=== PATIENT | female | born 1960 | race Caucasian/White ===

== ENCOUNTER 2016-07-21 13:20 | Outpatient (CLI) | payer OTHER ==
--- NOTE | 2016-07-21 14:44 | DIAGNOSTIC IMAGING REPORT ---
PROCEDURE: XR LUMBAR SPINE 2 OR 3 VIEWS INDICATION: CHRONIC MIDLINE LOW BBACK PX WITHOUT SCIATICA TECHNIQUE: Three views. COMPARISON: None. FINDINGS: Osseous structures and disc spaces are normal. No evidence of an acute process or fracture. IMPRESSION: 1. Negative lumbar spine.
== END 2016-07-21 23:00 ==
LOC: XR SRH 13:20
DX: M54.5 Low back pain (principal)

== ENCOUNTER 2016-08-15 14:13 | Outpatient (CLI) | payer OTHER | END 2016-08-15 23:00 | LOC: LAB SRH 14:13 | DX: M17.0 Bilateral primary osteoarthritis of knee (principal) | CPT/HCPCS: 90074; 92860; 95059; 95150; 98020; 98460 ==

== ENCOUNTER 2016-09-19 09:33 | Outpatient (CLI) | payer OTHER ==
--- NOTE | 2016-09-19 13:21 | DIAGNOSTIC IMAGING REPORT ---
PROCEDURE: MR LOWER EXT JOINT WO CONT-LT INDICATION: PAIN IN LEFT KNEE TECHNIQUE: PD and FAT-SAT PD sagittal and coronal images. FAT-SAT PD axial images. High-resolution T2 sagittal images of the cruciate ligaments. (Total of 6 sequences). COMPARISON: None. FINDINGS: Normal cruciate and collateral ligaments. Normal menisci. Normal quadriceps tendon. Mild patellar tendinosis distally. Prepatellar subcutaneous edema. Mild lateral patellar subluxation and chondromalacia patella. Small effusion. No popliteal cyst. IMPRESSION: 1. Mild lateral patellar subluxation and chondromalacia patella 2. Small effusion 3. Patellar tendinosis
== END 2016-09-19 23:00 ==
LOC: MRI SRH 09:33
DX: S83.012A Lateral subluxation of left patella, initial encounter (principal); M22.42 Chondromalacia patellae, left knee; M25.462 Effusion, left knee; M76.52 Patellar tendinitis, left knee

== ENCOUNTER 2016-10-13 16:20 | Outpatient (CLI) | payer OTHER ==
--- NOTE | 2016-10-13 17:04 | DIAGNOSTIC IMAGING REPORT ---
PROCEDURE: XR FOOT 3 VIEWS - RIGHT INDICATION: BONE SPUR OF ANKLE TECHNIQUE: Three views. COMPARISON: Right foot x-ray 02/05/2012. FINDINGS: Osteopenia. There is no fracture or dislocation. Large os trigonum. Old post-traumatic changes of the medial malleolus. Stable soft tissue calcification adjacent to the anterior process of the talus. Small plantar calcaneal spur IMPRESSION: 1. Prominent os trigonum and hypertrophic calcification along the anterior process of the talus, is unchanged 2. Small plantar calcaneal spur
== END 2016-10-13 23:00 ==
LOC: XR SRH 16:20
DX: M77.31 Calcaneal spur, right foot (principal); M25.871 Other specified joint disorders, right ankle and foot

== ENCOUNTER 2016-12-15 09:29 | Outpatient (CLI) | payer OTHER ==
--- NOTE | 2016-12-15 10:30 | DIAGNOSTIC IMAGING REPORT ---
PROCEDURE: XR FOOT 3 VIEWS - RIGHT INDICATION: BONE SPUR OF ANKLE TECHNIQUE: Three views. COMPARISON: Right foot x-ray 10/13/2016. FINDINGS: Suboptimal rotated lateral view. Degenerative changes of the talonavicular joint. Small plantar calcaneal spur. No fracture dislocation. Soft tissues are unremarkable. IMPRESSION: 1. Talonavicular joint osteoarthritic changes
--- NOTE | 2016-12-15 10:34 | DIAGNOSTIC IMAGING REPORT ---
PROCEDURE: XR WRIST MIN 3 VIEWS - B/L INDICATION: PARETHESIA OF BOTH HANDS TECHNIQUE: Four views of each wrist. COMPARISON: None. FINDINGS: No fracture or dislocation. Joint spaces are normal. Negative left ulnar variance. Soft tissues are unremarkable. IMPRESSION: 1. Left wrist negative ulnar variance 2. No acute changes
== END 2016-12-15 23:00 | disposition home or self-care (01) ==
LOC: XR SRH 09:29
DX: M19.071 Primary osteoarthritis, right ankle and foot (principal); R20.8 Other disturbances of skin sensation

== ENCOUNTER 2016-12-21 15:45 | Outpatient (CLI) | payer OTHER ==
--- NOTE | 2016-12-21 16:00 | DIAGNOSTIC IMAGING REPORT ---
PROCEDURE: XR CHEST 2 VIEW INDICATION: PRE OP TECHNIQUE: PA and lateral view. COMPARISON: Chest x-ray 04/14/2016 FINDINGS: Lungs are clear. Cardiovascular structures are normal. Bony thorax is unremarkable. No significant interval change. IMPRESSION: 1. Negative chest.
[2016-12-22] MEDS ORDERED: QVAR40 MCG IN (12:50)
[2016-12-22] MEDS ORDERED: ALBUTEROL HFA60 DOSE IN (12:50)
[2016-12-22] MEDS ORDERED: FOSAMAX70 MG PO (12:51)
[2016-12-22] MEDS ORDERED: DEPAKENE250 MG PO (12:51)
[2016-12-22] MEDS ORDERED: IBUPROFEN600 MG PO (12:52)
[2016-12-22] MEDS ORDERED: ACYCLOVIR200 MG PO (12:54)
[2016-12-22] MEDS ORDERED: CLARITIN10 M2 PO (12:55)
[2016-12-22] MEDS ORDERED: VITAMIN D-31000 UNIT PO (12:58)
[2016-12-22] MEDS ORDERED: POTASSIUM CHLO10 ME2 PO (13:00)
[2016-12-22] MEDS ORDERED: FUROSEMIDE20 MG PO (13:01)
[2016-12-22] MEDS ORDERED: ASPIRIN ADULT L81 M1 PO (13:01)
[2016-12-22] MEDS ORDERED: NICOTINE T7 MG/24 HR TOP (13:03)
[2016-12-27] MEDS ORDERED: OXAYDO5 MG PO (08:51)
== END 2016-12-21 23:00 | disposition home or self-care (01) ==
LOC: RT SRH 15:45
DX: Z01.812 Encounter for preprocedural laboratory examination (principal); M94.262 Chondromalacia, left knee
CPT/HCPCS: 90004; 90074; 90100; 95059

== ENCOUNTER 2016-12-27 06:10 | Day surgery (SDC) | payer OTHER ==
[~2016-12-27] VITALS: Ht 167.6 cm; Wt 90.3 kg
[~2016-12-27 06:10] MED LIST: ACYCLOVIR200 MG PO; ALBUTEROL HFA60 DOSE IN; ASPIRIN ADULT L81 M1 PO; CLARITIN10 M2 PO; DEPAKENE250 MG PO; FOSAMAX70 MG PO; FUROSEMIDE20 MG PO; IBUPROFEN600 MG PO; NICOTINE T7 MG/24 HR TOP; POTASSIUM CHLO10 ME2 PO; QVAR40 MCG IN; VITAMIN D-31000 UNIT PO
--- NOTE | 2016-12-27 08:46 | Postoperative Progress Note ---
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 Procedure: Left knee scopoe and chondroplasty Complications? No Condition: Stable EBL: 3cc Blood Administered: 0 Specimen(s) removed? No Grafts or Implants? No Graft/Implant type: She was taken to the OR and given GA. The left leg was placed in a torniquet and leg maharaj, then prepped and draped in the usual sterile fashion. Two small incisions were made at the joint line medial and lateral to the patellar tendon. The scope and shaver were inserted and the medial compartment inspected. There was a defect anterior in the MFC where the knee would hyperextend and the cartilage was damaged. This was shaved and smoothed as best as possible. The tibial plateau had grade 2 chondromalacia, but no correctable lesions. The remainder of the cartilage on the femoral condyles was in good condition. The menisci were in good condition as well. Inspection of the PFJ showed some grade 2 defects in the distal patella and the central sulcus which were shaved and smoothed as possible. The lateral tibial plateau was inspected and found to have a grade 3 defect medially that was shaved and smoothed. The gutters and superior pouch showed no loose bodies. The ACL was in good condition. She did have some generalized ligamentous laxity on EUA with grade 2 laxity of the collateral ligaments and 8-10 degrees of hyperextension at the knee. After inspection and debridement the knee was irrigated and evacuated. The incisions were closed with 3-0 nylon interrupted simple suture and dressed with Xeroform and ABDs wrapped with an Tor bandage. She was awakened and taken to the RR in stable condition. . (See nursing notes for details of grafts/implants)
[2016-12-27] MEDS ORDERED: OXAYDO5 MG PO ×2 (08:51)
--- NOTE | 2016-12-27 08:52 | Provider's Discharge Care Plan ---
Problem, Goal, Plan Problem List 1. Arthritis of left knee
--- NOTE | 2016-12-27 08:52 | Provider's Discharge Care Plan ---
Problem, Goal, Plan Problem List 1. Arthritis of left knee
[2016-12-27 10:29] VITALS: BP 110/67
== END 2016-12-27 10:12 | disposition home or self-care (01) ==
LOC: OR SRH 06:10 → SCU SRH 06:10 → OR SRH 07:30
PROVIDERS: Orthopaedic Surgery
PROC: 0SBD4ZZ Excision of Left Knee Joint, Percutaneous Endoscopic Approach (ICD-10-PCS; principal; 2016-12-27 07:30)
DX: M17.12 Unilateral primary osteoarthritis, left knee (principal); M23.52 Chronic instability of knee, left knee; J44.9 Chronic obstructive pulmonary disease, unspecified
CPT/HCPCS: 29229; 29240; 50002; 60001; 70002; 80118; 80144; 80575; 82591; 83420; 83773; 84044

== ENCOUNTER 2016-12-28 13:49 | Outpatient (CLI) | payer OTHER ==
[~2016-12-28 13:49] MED LIST changes: +OXAYDO5 MG PO
--- NOTE | 2016-12-28 14:15 | DIAGNOSTIC IMAGING REPORT ---
PROCEDURE: US VENOUS - LEFT EXT INDICATION: LLE PAIN/SWELLING TECHNIQUE: Duplex sonography of the deep venous system in the left lower extremity was performed. Compression and augmentation techniques were used. COMPARISON: None. FINDINGS: Normal compression of the greater saphenous, common femoral, superficial femoral, popliteal, peroneal, and posterior tibial veins. Normal augmentation. There is no evidence of superficial or deep venous thrombosis. IMPRESSION: 1. Negative venous ultrasound of the left lower extremity. 2. Results called to Dr. Hilario's office.
== END 2016-12-28 23:00 | disposition home or self-care (01) ==
LOC: US SRH 13:49
DX: M79.662 Pain in left lower leg (principal)